=== PATIENT | male | born 1980 | race African-American/Black ===

== ENCOUNTER 2023-08-08 16:15 | Inpatient (IN) | payer OTHER, SELFPAY ==
[~2023-08-08 16:15] MED LIST: Iopamidol 370 76% 100 ML VIAL ONE
[2023-08-08] MEDS ORDERED: Verapamil 5 MG/2 ML VIAL ONE (16:29)
[2023-08-08] MEDS ORDERED: Heparin 10,000 UNITS/ 10 ML VIAL ONE ×2 (16:29)
[2023-08-08] MEDS ORDERED: Adenosine 6 MG/2 ML VIAL ONE (16:29)
[2023-08-08] MEDS ORDERED: Lidocaine 1% (PF) 30 ML VIAL ONE (16:29)
[2023-08-08] MEDS ORDERED: Nitroglycerin 50 MG/250 ML BOT 0 ML ONE (16:29)
[2023-08-08] MEDS ORDERED: EPINEPHrine 1 MG/10 ML Abboject SYRINGE ONE (16:30)
[2023-08-08] MEDS ORDERED: Atropine Sulfate 1 mg/10 ml Syringe ONE (16:30)
[2023-08-08] MEDS ORDERED: PHENYLEPHRINE-NS 100 MCG/ML 10 ML SYRINGE ONE (16:30)
[2023-08-08] MEDS ORDERED: DOPamine 400 MG/D5W 250 ML 250 ML ONE (16:34)
[2023-08-08 16:36] LABS: Actual Bicarbonate (HCO3a) 17.8 mEq/L (22-28); Analyzer IN Cardio ER; Base Excess (BEa) -8.4 mEq/L (-2.0 to +3.0); CO2 Tension 39.4 mmHg (35.0-45.0); Calcium, Ionized (arterial) 1.13 mmol/L (1.12-1.30); Carboxyhemoglobin (COHb) 3.1 gm% (0.0-3.0); Hematocrit-ABG 47 % (42.0-52.0); Hemoglobin (Hb) 16.1 g/dL (14.0-18.0); O2 Tension (PaO2), arterial 93.6 mmHg (80.0-100.0); Potassium - ABG Lab 4.32 mmol/L (3.70-5.30); Puncture Site RRA; pH, Arterial 7.273 (7.35-7.45)
[2023-08-08 16:42] LABS: #Monocytes 0.3 thou/uL (0.11-0.59); #Neutrophils 2.7 thou/uL (1.40-6.50); %Basophils 0.5 % (0.0-1.0); %Eosinophils 0.5 % (0.0-10.0); %Lymphocytes 25.7 % (21.0-51.0); %Monocytes 7.4 % (0.0-10.0); %Neutrophils 64.5 % (42.0-75.0); Hematocrit 49.7 % (42.0-52.0); Hemoglobin 15.6 g/dL (14.0-18.0); Mean Corpuscular HGB CONC 31.4 g/dL (32.0-36.0); Mean Corpuscular Hemoglobin 26.9 pg (27.0-31.0); Mean Corpuscular Volume 85.5 fl (78.0-98.0); Mean Platelet Volume 9.5 fL (7.4-10.4); Platelet Count 215 10x3/uL (130-400); RBC Distribution Width 13.4 % (11.5-14.5); Red Blood Cell (RBC) Count 5.81 mill/uL (4.70-6.10); White Blood Cell (WBC) Count 4.2 10x3/uL (4.8-10.8)
[2023-08-08 16:59] LABS: Amphetamine Detected (NotDetected); Bacteria/HPF 1+ HPF (None Seen); Barbiturates Screen Not Detected (NotDetected); Benzodiazepine Screen Not Detected (NotDetected); Bilirubin Negative (Negative); Blood, Urine 3+ (Negative); CAUTI Indications for Culture Alt mental st,lethar; Clarity Extra Turbid (Clear); Cocaine Metabolite Screen Not Detected (NotDetected); Glucose, Urine (Dipstick) 100 mg/dL (Negative); Ketone, Urine Negative (Negative); Leukocyte Negative Leu/uL (Negative); Methadone Not Detected (NotDetected); Methamphetamine Detected (NotDetected); Nitrite Negative (Negative); Opiate Screen Not Detected (NotDetected); Oxycodone Screen Not Detected (NotDetected); Phencyclidine (PCP) Not Detected (NotDetected); Protein, Urine (Dipstick) 600 mg/dL (Neg-Trace); RBC/HPF Greater than 50 HPF (0-3); Specific Gravity, Urine 1.024 (1.002-1.036); Sperm/HPF 2+ HPF (None Seen); Squamous Epithelial 0-3 HPF (0-3); THC/Cannabinoid Screen Detected (NotDetected); Tricyclic Screen Not Detected (NotDetected); Urobilinogen Normal mg/dL (Less than 2); WBC/HPF 21-50 HPF (0-3); pH, Urine 6.5 (5.0-9.0)
[2023-08-08 17:00] LABS: INR-International Normal Ratio 1.2; PTT 28.2 sec (22.9-36.1); Prothrombin Time 15.3 sec (12.0-14.7)
[2023-08-08 17:00] LABS: Urine Culture Reflex Yes Yes
[2023-08-08 17:05] LABS: ALT (SGPT) 154 U/L (8-55); AST (SGOT) 137 U/L (5-34); Albumin 4.3 g/dL (3.5-5.0); Alkaline Phosphatase 60 U/L (40-110); Anion Gap 24 mmol/L (10-20); BUN (Urea Nitrogen) 22 mg/dL (8.9-20.6); Bilirubin, Total 1.6 mg/dL (0.2-1.2); Calc. Creatinine Clearance 0 mL/min (70-130); Calcium 8.6 mg/dL (7.8-10.44); Carbon Dioxide 13 mmol/L (22-29); Chloride 105 mmol/L (98-107); Estimated GFR 48; Globulin 1.7 g/dL (2.4-3.5); Glucose 119 mg/dL (70-105); Potassium 4.5 mmol/L (3.5-5.1); Sodium 137 mmol/L (136-145)
[2023-08-08 17:09] LABS: Troponin I 0.153 ng/mL (< 0.028)
[2023-08-08] MEDS ORDERED: fentaNYL 50 mcg/mL 1 mL Vial ONE (17:11)
[2023-08-08] MEDS ORDERED: Propofol 1,000 MG/100 ML VIAL IV ONE (18:05)
[2023-08-08] MEDS ORDERED: DISCONTINUE PREVIOUS NARCOTIC PAIN MEDICATIONS AND BENZODIAZEPINES FS SCH (18:30)
[2023-08-08] MEDS ORDERED: NOREPINEPHRINE 8 MG/250 ML-D5W 250 ML IVPB SCH (18:30)
[2023-08-08] MEDS ORDERED: Propofol BOLUS 1,000 MG/100 ML VIAL IV PRN (18:30)
[2023-08-08] MEDS ORDERED: Fentanyl CADD 100 ML IV SCH (18:30)
[2023-08-08] MEDS ORDERED: Fentanyl BOLUS 250 ML IVPB PRN (18:30)
[2023-08-08] MEDS: Propofol 1,000 MG/100 ML VIAL IV PRN ×2 (18:44→23:33)
[2023-08-08] MEDS ORDERED: DOPamine 400 MG/D5W 250 ML 250 ML IVPB PRN (19:40)
[2023-08-08] MEDS ORDERED: Nitroglycerin 0.4 MG TAB (25 Tab Bottle) SL PRN (19:41)
[2023-08-08] MEDS ORDERED: Acetaminophen/Codeine 30-300mg Tablet PO PRN ×2 (19:42→19:43)
[2023-08-08] MEDS ORDERED: Amiodarone 150 MG, Admixture Fee 1 EACH in Dextrose 5% in Water 100 ML IVPB SCH (19:45)
[2023-08-08] MEDS: Lorazepam 2 MG/ML VIAL SLOW IVP PRN ×2 (20:40→21:47)
[2023-08-08] MEDS: Morphine 2 MG/ML VIAL SLOW IVP PRN (21:44)
[2023-08-08 22:48] LABS: Lactic Acid 0.8 mmol/L (0.5-2.2)
[2023-08-08] MEDS ORDERED: Electrolyte Replacement Protocol 1 EACH FS SCH (23:00)
[2023-08-09] MEDS: Morphine 2 MG/ML VIAL SLOW IVP PRN (02:52)
[2023-08-09] MEDS: Propofol 1,000 MG/100 ML VIAL IV PRN ×3 (04:37→20:33)
[2023-08-09 04:57] LABS: #Neutrophils 8.9 thou/uL (1.40-6.50); %Basophils 0.1 % (0.0-1.0); %Lymphocytes 10.5 % (21.0-51.0); %Neutrophils 80.1 % (42.0-75.0); Hematocrit 47.8 % (42.0-52.0); Hemoglobin 15.6 g/dL (14.0-18.0); Mean Corpuscular HGB CONC 32.6 g/dL (32.0-36.0); Mean Corpuscular Hemoglobin 26.9 pg (27.0-31.0); Mean Platelet Volume 9.4 fL (7.4-10.4); Platelet Count 202 10x3/uL (130-400); RBC Distribution Width 13.5 % (11.5-14.5); Red Blood Cell (RBC) Count 5.79 mill/uL (4.70-6.10); White Blood Cell (WBC) Count 11.1 10x3/uL (4.8-10.8)
[2023-08-09 05:11] LABS: Mean Corpuscular Volume 82.6 fl (78.0-98.0)
[2023-08-09] MEDS: Amiodarone 450 MG, Admixture Fee 1 EACH in Dextrose 5% in Water 250 ML IVPB SCH ×2 (05:27→11:56)
[2023-08-09 06:21] LABS: ALT (SGPT) 131 U/L (8-55); AST (SGOT) 93 U/L (5-34); Albumin 4.1 g/dL (3.5-5.0); Alkaline Phosphatase 60 U/L (40-110); Anion Gap 16 mmol/L (10-20); BUN (Urea Nitrogen) 23 mg/dL (8.9-20.6); Bilirubin, Total 1.6 mg/dL (0.2-1.2); Calc. Creatinine Clearance 93 mL/min (70-130); Calcium 9.1 mg/dL (7.8-10.44); Carbon Dioxide 20 mmol/L (22-29); Chloride 105 mmol/L (98-107); Estimated GFR 66; Globulin 2.4 g/dL (2.4-3.5); Glucose 104 mg/dL (70-105); Potassium 4.1 mmol/L (3.5-5.1); Protein, Total 6.5 g/dL (6.0-8.3); Sodium 137 mmol/L (136-145)
[2023-08-09 06:46] LABS: Phosphorus 4.7 mg/dL (2.3-4.7)
[2023-08-09 07:20] LABS: Actual Bicarbonate (HCO3a) 20.8 mEq/L (22-28); Base Excess (BEa) -3.3 mEq/L (-2.0 to +3.0); CO2 Tension 35.2 mmHg (35.0-45.0); Calcium, Ionized (arterial) 1.14 mmol/L (1.12-1.30); Carboxyhemoglobin (COHb) 0.9 gm% (0.0-3.0); Hematocrit-ABG 47 % (42.0-52.0); O2 Tension (PaO2), arterial 102.1 mmHg (80.0-100.0); Potassium - ABG Lab 3.97 mmol/L (3.70-5.30)
[2023-08-09 07:26] LABS: Puncture Site Arterial Line
[2023-08-09] MEDS: Famotidine/PF 20 mg/2ml Vial SLOW IVP SCH ×2 (08:50→20:33)
[2023-08-09] MEDS ORDERED: Magnesium 2 GM/50 ML(in water) 2 GM in Premix 1 BAG IVPB SCH (09:00)
[2023-08-09] MEDS ORDERED: Acetaminophen 325 MG TAB PER TUBE PRN (18:00)
[2023-08-10] MEDS: Amiodarone 450 MG, Admixture Fee 1 EACH in Dextrose 5% in Water 250 ML IVPB SCH ×2 (04:11→18:51)
[2023-08-10] MEDS: Propofol 1,000 MG/100 ML VIAL IV PRN ×2 (05:45→23:05)
[2023-08-10] MEDS: Famotidine/PF 20 mg/2ml Vial SLOW IVP SCH ×2 (08:44→20:22)
[2023-08-10] MEDS ORDERED: Dexmedetomidine 400 MCG, Admixture Fee 1 EACH in Sodium Chloride 0.9% 96 ML IVPB SCH (10:30)
[2023-08-11 05:25] LABS: #Monocytes 1.3 thou/uL (0.11-0.59); #Neutrophils 8.4 thou/uL (1.40-6.50); %Basophils 0.1 % (0.0-1.0); %Eosinophils 0.1 % (0.0-10.0); %Lymphocytes 10.6 % (21.0-51.0); %Monocytes 11.9 % (0.0-10.0); %Neutrophils 76.9 % (42.0-75.0); Hematocrit 51.7 % (42.0-52.0); Hemoglobin 16.5 g/dL (14.0-18.0); Mean Corpuscular HGB CONC 31.9 g/dL (32.0-36.0); Mean Corpuscular Volume 84.5 fl (78.0-98.0); Platelet Count 170 10x3/uL (130-400); RBC Distribution Width 13.7 % (11.5-14.5); Red Blood Cell (RBC) Count 6.12 mill/uL (4.70-6.10); White Blood Cell (WBC) Count 10.9 10x3/uL (4.8-10.8)
[2023-08-11] MEDS: Propofol 1,000 MG/100 ML VIAL IV PRN (06:08)
[2023-08-11 06:11] LABS: Anion Gap 18 mmol/L (10-20); BUN (Urea Nitrogen) 24 mg/dL (8.9-20.6); Calc. Creatinine Clearance 103 mL/min (70-130); Calcium 8.8 mg/dL (7.8-10.44); Carbon Dioxide 20 mmol/L (22-29); Chloride 103 mmol/L (98-107); Estimated GFR 81; Glucose 122 mg/dL (70-105); Potassium 4.8 mmol/L (3.5-5.1); Sodium 136 mmol/L (136-145)
[2023-08-11] MEDS: Famotidine/PF 20 mg/2ml Vial SLOW IVP SCH ×2 (09:26→20:36)
[2023-08-11] MEDS: Amiodarone 450 MG, Admixture Fee 1 EACH in Dextrose 5% in Water 250 ML IVPB SCH (09:48)
[2023-08-11] MEDS ORDERED: Magnesium 2 GM/50 ML(in water) 2 GM in Premix 1 BAG IVPB SCH (11:00)
[2023-08-11] MEDS ORDERED: Amiodarone 200 MG TAB PO SCH (12:15)
[2023-08-11] MEDS ORDERED: Aspirin 81 mg Enteric Coated Tablet PO SCH (12:30)
[2023-08-11] MEDS: Valsartan 80 MG TAB PO SCH (13:27)
[2023-08-11] MEDS: Carvedilol 3.125 MG TAB PO SCH (17:10)
[2023-08-11] MEDS ORDERED: FLU VACC QS2023-24(6MOS UP)/PF 60 MCG/0.5 ML SYRINGE IM ONE (20:15)
[2023-08-11] MEDS: Amiodarone 200 MG TAB PO SCH (20:36)
[2023-08-12 04:23] LABS: Anion Gap 13 mmol/L (10-20); BUN (Urea Nitrogen) 24 mg/dL (8.9-20.6); Calc. Creatinine Clearance 133 mL/min (70-130); Calcium 8.6 mg/dL (7.8-10.44); Carbon Dioxide 24 mmol/L (22-29); Cardiac Risk 7.8 (Less than 4.5); Chloride 102 mmol/L (98-107); Cholesterol 203 mg/dl (< 200 Desired); Estimated GFR 110; Glucose 109 mg/dL (70-105); HDL Cholesterol 26 mg/dL (>60 Neg Risk); LDL Cholesterol, Calculated 148 mg/dL; Potassium 4.3 mmol/L (3.5-5.1); Sodium 135 mmol/L (136-145); Triglycerides 147 mg/dL (Less than 150)
[2023-08-12] MEDS: Amiodarone 200 MG TAB PO SCH ×2 (08:18→20:44)
[2023-08-12] MEDS: Aspirin 81 mg Enteric Coated Tablet PO SCH (08:18)
[2023-08-12] MEDS: Famotidine/PF 20 mg/2ml Vial SLOW IVP SCH ×2 (08:18→20:44)
[2023-08-12] MEDS: Carvedilol 3.125 MG TAB PO SCH ×2 (08:18→18:16)
[2023-08-12] MEDS: Valsartan 80 MG TAB PO SCH (08:18)
[2023-08-13 05:29] LABS: Anion Gap 16 mmol/L (10-20); BUN (Urea Nitrogen) 26 mg/dL (8.9-20.6); Calc. Creatinine Clearance 122 mL/min (70-130); Calcium 8.9 mg/dL (7.8-10.44); Carbon Dioxide 22 mmol/L (22-29); Chloride 103 mmol/L (98-107); Estimated GFR 98; Glucose 89 mg/dL (70-105); Potassium 4.3 mmol/L (3.5-5.1); Sodium 137 mmol/L (136-145)
[2023-08-13] MEDS: Amiodarone 200 MG TAB PO SCH ×2 (08:59→20:21)
[2023-08-13] MEDS: Aspirin 81 mg Enteric Coated Tablet PO SCH (08:59)
[2023-08-13] MEDS: Valsartan 80 MG TAB PO SCH (08:59)
[2023-08-13] MEDS: Famotidine/PF 20 mg/2ml Vial SLOW IVP SCH ×2 (09:00→20:21)
[2023-08-13] MEDS: Carvedilol 3.125 MG TAB PO SCH ×2 (09:00→17:41)
[2023-08-14 05:38] LABS: Anion Gap 14 mmol/L (10-20); BUN (Urea Nitrogen) 19 mg/dL (8.9-20.6); Calc. Creatinine Clearance 123 mL/min (70-130); Calcium 8.8 mg/dL (7.8-10.44); Carbon Dioxide 23 mmol/L (22-29); Chloride 103 mmol/L (98-107); Estimated GFR 99; Glucose 97 mg/dL (70-105); Potassium 4.3 mmol/L (3.5-5.1); Sodium 136 mmol/L (136-145)
[2023-08-14 05:53] LABS: Albumin 3.8 g/dL (3.5-5.0)
[2023-08-14 05:56] LABS: Protein, Total 6.7 g/dL (6.0-8.3)
[2023-08-14 05:57] LABS: Bilirubin, Total 1.2 mg/dL (0.2-1.2)
[2023-08-14 05:58] LABS: Alkaline Phosphatase 57 U/L (40-110)
[2023-08-14 06:01] LABS: ALT (SGPT) 46 U/L (8-55); AST (SGOT) 44 U/L (5-34); Bilirubin, Direct 0.3 mg/dL (0.1-0.3)
[2023-08-14] MEDS: Carvedilol 3.125 MG TAB PO SCH ×3 (09:16→17:43)
[2023-08-14] MEDS: Famotidine/PF 20 mg/2ml Vial SLOW IVP SCH ×3 (09:17→19:58)
[2023-08-14] MEDS: Amiodarone 200 MG TAB PO SCH ×3 (09:17→19:58)
[2023-08-14] MEDS: Valsartan 80 MG TAB PO SCH ×2 (09:17→09:31)
[2023-08-14] MEDS: Aspirin 81 mg Enteric Coated Tablet PO SCH ×2 (09:19→09:31)
[2023-08-15 06:08] LABS: Anion Gap 16 mmol/L (10-20); BUN (Urea Nitrogen) 20 mg/dL (8.9-20.6); Calc. Creatinine Clearance 128 mL/min (70-130); Calcium 9.3 mg/dL (7.8-10.44); Carbon Dioxide 21 mmol/L (22-29); Chloride 102 mmol/L (98-107); Estimated GFR 111; Glucose 78 mg/dL (70-105); Potassium 4.6 mmol/L (3.5-5.1); Sodium 134 mmol/L (136-145)
[2023-08-15] MEDS: Aspirin 81 mg Enteric Coated Tablet PO SCH (10:28)
[2023-08-15] MEDS: Valsartan 80 MG TAB PO SCH (10:28)
[2023-08-15] MEDS: Amiodarone 200 MG TAB PO SCH ×2 (10:28→11:58)
[2023-08-15] MEDS: Carvedilol 3.125 MG TAB PO SCH (10:29)
[2023-08-15] MEDS: Famotidine/PF 20 mg/2ml Vial SLOW IVP SCH ×2 (10:32→19:52)
[2023-08-15] MEDS ORDERED: Carvedilol 3.125 MG TAB PO SCH (17:00)
[2023-08-15] MEDS: Carvedilol 6.25 MG TAB PO SCH (17:36)
[2023-08-16] MEDS: Amiodarone 200 MG TAB PO SCH (10:29)
[2023-08-16] MEDS: Valsartan 80 MG TAB PO SCH (10:29)
[2023-08-16] MEDS: Carvedilol 6.25 MG TAB PO SCH ×2 (10:31→18:04)
[2023-08-16] MEDS: Aspirin 81 mg Enteric Coated Tablet PO SCH (10:31)
[2023-08-16] MEDS: Famotidine/PF 20 mg/2ml Vial SLOW IVP SCH ×2 (10:32→21:23)
[2023-08-16 21:23] LABS: Anion Gap 13 mmol/L (10-20); BUN (Urea Nitrogen) 21 mg/dL (8.9-20.6); Calc. Creatinine Clearance 98 mL/min (70-130); Calcium 8.9 mg/dL (7.8-10.44); Carbon Dioxide 22 mmol/L (22-29); Chloride 102 mmol/L (98-107); Estimated GFR 80; Glucose 115 mg/dL (70-105); Potassium 3.9 mmol/L (3.5-5.1); Sodium 133 mmol/L (136-145)
[2023-08-17 05:12] LABS: Anion Gap 15 mmol/L (10-20); BUN (Urea Nitrogen) 18 mg/dL (8.9-20.6); Calc. Creatinine Clearance 111 mL/min (70-130); Carbon Dioxide 21 mmol/L (22-29); Chloride 102 mmol/L (98-107); Estimated GFR 94; Glucose 92 mg/dL (70-105); Potassium 4.6 mmol/L (3.5-5.1); Sodium 133 mmol/L (136-145)
[2023-08-17] MEDS: Carvedilol 6.25 MG TAB PO SCH ×2 (10:13→18:00)
[2023-08-17] MEDS: Valsartan 80 MG TAB PO SCH (10:13)
[2023-08-17] MEDS: Aspirin 81 mg Enteric Coated Tablet PO SCH (10:14)
[2023-08-17] MEDS: Famotidine/PF 20 mg/2ml Vial SLOW IVP SCH ×2 (10:14→21:05)
[2023-08-17] MEDS: Famotidine 20 MG TAB PO SCH (21:04)
[2023-08-18 05:11] LABS: Anion Gap 14 mmol/L (10-20); BUN (Urea Nitrogen) 18 mg/dL (8.9-20.6); Calc. Creatinine Clearance 119 mL/min (70-130); Calcium 9.1 mg/dL (7.8-10.44); Carbon Dioxide 22 mmol/L (22-29); Chloride 101 mmol/L (98-107); Estimated GFR 102; Glucose 91 mg/dL (70-105); Potassium 4.2 mmol/L (3.5-5.1); Sodium 133 mmol/L (136-145)
[2023-08-18 08:21] LABS: Troponin I 0.036 ng/mL (< 0.028)
[2023-08-18] MEDS: Famotidine/PF 20 mg/2ml Vial SLOW IVP SCH ×2 (09:27→20:44)
[2023-08-18] MEDS: Famotidine 20 MG TAB PO SCH ×2 (09:27→20:40)
[2023-08-18] MEDS: Aspirin 81 mg Enteric Coated Tablet PO SCH (09:27)
[2023-08-18] MEDS: Carvedilol 6.25 MG TAB PO SCH ×2 (09:27→16:36)
[2023-08-18] MEDS: Amiodarone 200 MG TAB PO SCH (09:27)
[2023-08-18] MEDS: Valsartan 80 MG TAB PO SCH (09:27)
[2023-08-18] MEDS: Magnesium 2 GM/50 ML(in water) 2 GM in Premix 1 BAG IVPB SCH ×2 (11:03→11:39)
[2023-08-19 05:23] LABS: Anion Gap 14 mmol/L (10-20); BUN (Urea Nitrogen) 19 mg/dL (8.9-20.6); Calc. Creatinine Clearance 108 mL/min (70-130); Calcium 9.4 mg/dL (7.8-10.44); Carbon Dioxide 21 mmol/L (22-29); Chloride 102 mmol/L (98-107); Estimated GFR 90; Glucose 78 mg/dL (70-105); Potassium 4.2 mmol/L (3.5-5.1); Sodium 133 mmol/L (136-145)
[2023-08-19] MEDS: Famotidine 20 MG TAB PO SCH ×2 (09:56→20:22)
[2023-08-19] MEDS: Carvedilol 6.25 MG TAB PO SCH ×2 (09:56→16:35)
[2023-08-19] MEDS: Aspirin 81 mg Enteric Coated Tablet PO SCH (09:56)
[2023-08-19] MEDS: Valsartan 80 MG TAB PO SCH (09:56)
[2023-08-19] MEDS: Amiodarone 200 MG TAB PO SCH (09:56)
[2023-08-19] MEDS: Famotidine/PF 20 mg/2ml Vial SLOW IVP SCH ×2 (10:12→20:21)
[2023-08-19 13:57] LABS: Hematocrit 51.3 % (42.0-52.0); Hemoglobin 16.8 g/dL (14.0-18.0); Platelet Count 278 10x3/uL (130-400)
[2023-08-20 04:52] LABS: Anion Gap 17 mmol/L (10-20); BUN (Urea Nitrogen) 18 mg/dL (8.9-20.6); Calc. Creatinine Clearance 87 mL/min (70-130); Calcium 9.6 mg/dL (7.8-10.44); Carbon Dioxide 22 mmol/L (22-29); Chloride 101 mmol/L (98-107); Estimated GFR 72; Glucose 81 mg/dL (70-105); Potassium 4.5 mmol/L (3.5-5.1); Sodium 135 mmol/L (136-145)
[2023-08-20] MEDS ORDERED: Amiodarone 200 MG TAB PO SCH (09:57)
[2023-08-20] MEDS: Amiodarone 200 MG TAB PO SCH (10:17)
[2023-08-20] MEDS: Valsartan 80 MG TAB PO SCH (12:48)
[2023-08-20] MEDS: Aspirin 81 mg Enteric Coated Tablet PO SCH (12:48)
[2023-08-20] MEDS: Carvedilol 6.25 MG TAB PO SCH ×2 (12:49→16:42)
[2023-08-20] MEDS: Famotidine 20 MG TAB PO SCH ×2 (12:49→21:46)
[2023-08-20] MEDS: Famotidine/PF 20 mg/2ml Vial SLOW IVP SCH (12:51)
[2023-08-21 05:41] LABS: Anion Gap 15 mmol/L (10-20); BUN (Urea Nitrogen) 20 mg/dL (8.9-20.6); Calc. Creatinine Clearance 78 mL/min (70-130); Calcium 9.4 mg/dL (7.8-10.44); Carbon Dioxide 20 mmol/L (22-29); Chloride 103 mmol/L (98-107); Estimated GFR 64; Glucose 108 mg/dL (70-105); Potassium 4.1 mmol/L (3.5-5.1); Sodium 134 mmol/L (136-145)
[2023-08-21] MEDS: Famotidine 20 MG TAB PO SCH ×2 (10:00→20:01)
[2023-08-21] MEDS: Carvedilol 6.25 MG TAB PO SCH ×2 (10:00→16:33)
[2023-08-21] MEDS: Aspirin 81 mg Enteric Coated Tablet PO SCH (10:00)
[2023-08-21] MEDS: Valsartan 80 MG TAB PO SCH (10:00)
[2023-08-21] MEDS: Amiodarone 200 MG TAB PO SCH (10:01)
[2023-08-22 05:24] LABS: #Monocytes 0.6 thou/uL (0.11-0.59); #Neutrophils 2.7 thou/uL (1.40-6.50); %Basophils 0.4 % (0.0-1.0); %Eosinophils 0.7 % (0.0-10.0); %Lymphocytes 38.7 % (21.0-51.0); %Monocytes 11.5 % (0.0-10.0); %Neutrophils 48.5 % (42.0-75.0); Hematocrit 53.1 % (42.0-52.0); Hemoglobin 16.7 g/dL (14.0-18.0); Mean Corpuscular HGB CONC 31.5 g/dL (32.0-36.0); Mean Corpuscular Hemoglobin 26.3 pg (27.0-31.0); Mean Corpuscular Volume 83.6 fl (78.0-98.0); Mean Platelet Volume 9.3 fL (7.4-10.4); Platelet Count 324 10x3/uL (130-400); RBC Distribution Width 12.7 % (11.5-14.5); Red Blood Cell (RBC) Count 6.35 mill/uL (4.70-6.10); White Blood Cell (WBC) Count 5.5 10x3/uL (4.8-10.8)
[2023-08-22 05:55] LABS: Anion Gap 15 mmol/L (10-20); BUN (Urea Nitrogen) 16 mg/dL (8.9-20.6); Calc. Creatinine Clearance 95 mL/min (70-130); Calcium 9.6 mg/dL (7.8-10.44); Carbon Dioxide 20 mmol/L (22-29); Chloride 103 mmol/L (98-107); Estimated GFR 80; Glucose 90 mg/dL (70-105); Potassium 4.4 mmol/L (3.5-5.1); Sodium 134 mmol/L (136-145)
[2023-08-22] MEDS: Amiodarone 200 MG TAB PO SCH (08:11)
[2023-08-22] MEDS: Famotidine 20 MG TAB PO SCH ×2 (08:11→21:27)
[2023-08-22] MEDS: Aspirin 81 mg Enteric Coated Tablet PO SCH (08:11)
[2023-08-22] MEDS: Valsartan 80 MG TAB PO SCH (08:11)
[2023-08-22] MEDS: Carvedilol 6.25 MG TAB PO SCH ×2 (08:11→17:20)
[2023-08-23 09:13] LABS: #Monocytes 0.5 thou/uL (0.11-0.59); #Neutrophils 2.4 thou/uL (1.40-6.50); %Basophils 0.4 % (0.0-1.0); %Eosinophils 0.9 % (0.0-10.0); %Lymphocytes 35.7 % (21.0-51.0); %Monocytes 10.3 % (0.0-10.0); %Neutrophils 52.5 % (42.0-75.0); Hematocrit 54.1 % (42.0-52.0); Hemoglobin 16.6 g/dL (14.0-18.0); Mean Corpuscular HGB CONC 30.7 g/dL (32.0-36.0); Mean Corpuscular Hemoglobin 26.7 pg (27.0-31.0); Mean Platelet Volume 10.4 fL (7.4-10.4); Platelet Count 175 10x3/uL (130-400); RBC Distribution Width 12.9 % (11.5-14.5); Red Blood Cell (RBC) Count 6.22 mill/uL (4.70-6.10); White Blood Cell (WBC) Count 4.5 10x3/uL (4.8-10.8)
[2023-08-23 09:24] LABS: Anion Gap 17 mmol/L (10-20); BUN (Urea Nitrogen) 15 mg/dL (8.9-20.6); Calc. Creatinine Clearance 97 mL/min (70-130); Calcium 9.7 mg/dL (7.8-10.44); Carbon Dioxide 19 mmol/L (22-29); Chloride 103 mmol/L (98-107); Estimated GFR 85; Glucose 84 mg/dL (70-105); Potassium 4.8 mmol/L (3.5-5.1); Sodium 134 mmol/L (136-145)
[2023-08-23 10:05] LABS: Platelet Adequacy Comment Appears Adequate
[2023-08-23] MEDS: Famotidine 20 MG TAB PO SCH ×2 (10:17→21:06)
[2023-08-23] MEDS: Aspirin 81 mg Enteric Coated Tablet PO SCH (10:17)
[2023-08-23] MEDS: Valsartan 80 MG TAB PO SCH (11:24)
[2023-08-23] MEDS: Amiodarone 200 MG TAB PO SCH (11:24)
[2023-08-23] MEDS: Carvedilol 6.25 MG TAB PO SCH ×2 (11:25→18:07)
[2023-08-24 10:10] LABS: Anion Gap 12 mmol/L (10-20); BUN (Urea Nitrogen) 16 mg/dL (8.9-20.6); Calc. Creatinine Clearance 87 mL/min (70-130); Calcium 9.5 mg/dL (7.8-10.44); Carbon Dioxide 25 mmol/L (22-29); Chloride 104 mmol/L (98-107); Estimated GFR 74; Glucose 94 mg/dL (70-105); Potassium 4.3 mmol/L (3.5-5.1); Sodium 137 mmol/L (136-145)
[2023-08-24] MEDS: Aspirin 81 mg Enteric Coated Tablet PO SCH (11:44)
[2023-08-24] MEDS: Amiodarone 200 MG TAB PO SCH (11:44)
[2023-08-24] MEDS: Carvedilol 6.25 MG TAB PO SCH ×2 (11:44→16:15)
[2023-08-24] MEDS: Famotidine 20 MG TAB PO SCH ×2 (11:44→20:54)
[2023-08-24] MEDS: Valsartan 80 MG TAB PO SCH (11:44)
[2023-08-24] MEDS ORDERED: Magnesium 2 GM/50 ML(in water) 2 GM in Premix 1 BAG IVPB SCH (14:00)
[2023-08-25 08:08] LABS: Anion Gap 14 mmol/L (10-20); BUN (Urea Nitrogen) 14 mg/dL (8.9-20.6); Calc. Creatinine Clearance 92 mL/min (70-130); Calcium 9.6 mg/dL (7.8-10.44); Carbon Dioxide 24 mmol/L (22-29); Chloride 104 mmol/L (98-107); Estimated GFR 79; Glucose 94 mg/dL (70-105); Potassium 4.1 mmol/L (3.5-5.1); Sodium 138 mmol/L (136-145)
[2023-08-25] MEDS: Aspirin 81 mg Enteric Coated Tablet PO SCH (08:09)
[2023-08-25] MEDS: Carvedilol 6.25 MG TAB PO SCH ×2 (08:09→16:05)
[2023-08-25] MEDS: Amiodarone 200 MG TAB PO SCH (08:09)
[2023-08-25] MEDS: Famotidine 20 MG TAB PO SCH ×2 (08:09→19:48)
[2023-08-25] MEDS: Valsartan 80 MG TAB PO SCH (08:09)
[2023-08-25 08:11] VITALS: BMI 22.4
[2023-08-26 05:53] LABS: Anion Gap 14 mmol/L (10-20); BUN (Urea Nitrogen) 21 mg/dL (8.9-20.6); Calc. Creatinine Clearance 69 mL/min (70-130); Calcium 9.3 mg/dL (7.8-10.44); Carbon Dioxide 24 mmol/L (22-29); Chloride 104 mmol/L (98-107); Estimated GFR 56; Glucose 91 mg/dL (70-105); Sodium 138 mmol/L (136-145)
[2023-08-26] MEDS: Aspirin 81 mg Enteric Coated Tablet PO SCH (09:36)
[2023-08-26] MEDS: Famotidine 20 MG TAB PO SCH ×2 (09:36→21:00)
[2023-08-26] MEDS: Valsartan 80 MG TAB PO SCH ×2 (09:37→09:39)
[2023-08-26] MEDS: Amiodarone 200 MG TAB PO SCH (09:37)
[2023-08-26] MEDS: Carvedilol 6.25 MG TAB PO SCH ×2 (09:38→17:56)
[2023-08-26] MEDS ORDERED: Lactated Ringer's 1,000 ML IV SCH (10:30)
[2023-08-27 05:49] LABS: Anion Gap 14 mmol/L (10-20); BUN (Urea Nitrogen) 20 mg/dL (8.9-20.6); Calc. Creatinine Clearance 95 mL/min (70-130); Calcium 9.3 mg/dL (7.8-10.44); Carbon Dioxide 22 mmol/L (22-29); Chloride 104 mmol/L (98-107); Estimated GFR 82; Glucose 91 mg/dL (70-105); Potassium 4.4 mmol/L (3.5-5.1); Sodium 136 mmol/L (136-145)
[2023-08-27] MEDS: Famotidine 20 MG TAB PO SCH (09:18)
[2023-08-27] MEDS: Valsartan 80 MG TAB PO SCH (09:18)
[2023-08-27] MEDS: Carvedilol 6.25 MG TAB PO SCH (09:19)
[2023-08-27] MEDS: Amiodarone 200 MG TAB PO SCH (09:19)
[2023-08-27] MEDS: Aspirin 81 mg Enteric Coated Tablet PO SCH (09:19)
[2023-08-27 16:38] VITALS: BP 104/72; TEMP 97.6
== END 2023-08-27 17:00 | disposition home or self-care (01) | DRG 286 ==
LOC: ERS 16:15 → CCL 16:40 → CCU 17:21 → 2NO 08-12 10:56 → SURG A 08-25 14:48
PROVIDERS: ADMIT Internal Medicine Cardiovascular Disease; ATTEND Internal Medicine
PROC: 4A023N7 Measurement of Cardiac Sampling and Pressure, Left Heart, Percutaneous Approach (ICD-10-PCS; principal; 2023-08-08)
PROC: B2111ZZ Fluoroscopy of Multiple Coronary Arteries using Low Osmolar Contrast (ICD-10-PCS; 2023-08-08)
PROC: B2151ZZ Fluoroscopy of Left Heart using Low Osmolar Contrast (ICD-10-PCS; 2023-08-08)
PROC: 0D9670Z Drainage of Stomach with Drainage Device, Via Natural or Artificial Opening (ICD-10-PCS; 2023-08-08)
PROC: 5A1945Z Respiratory Ventilation, 24-96 Consecutive Hours (ICD-10-PCS; 2023-08-08)
PROC: 4A133R1 Monitoring of Arterial Saturation, Peripheral, Percutaneous Approach (ICD-10-PCS; 2023-08-08)
PROC: 3E033XZ Introduction of Vasopressor into Peripheral Vein, Percutaneous Approach (ICD-10-PCS; 2023-08-08)
PROC: 4A10X4Z Monitoring of Central Nervous Electrical Activity, External Approach (ICD-10-PCS; 2023-08-24)
DX: I49.01 Ventricular fibrillation (principal); J96.00 Acute respiratory failure, unspecified whether with hypoxia or hypercapnia; K72.00 Acute and subacute hepatic failure without coma; E87.20 Acidosis, unspecified; N17.9 Acute kidney failure, unspecified; G93.1 Anoxic brain damage, not elsewhere classified; F32.A Depression, unspecified; F17.210 Nicotine dependence, cigarettes, uncomplicated; I42.0 Dilated cardiomyopathy; N18.9 Chronic kidney disease, unspecified; F15.10 Other stimulant abuse, uncomplicated; Z95.5 Presence of coronary angioplasty implant and graft; I47.20 Ventricular tachycardia, unspecified; I46.2 Cardiac arrest due to underlying cardiac condition; E78.5 Hyperlipidemia, unspecified; G93.89 Other specified disorders of brain; I12.9 Hypertensive chronic kidney disease with stage 1 through stage 4 chronic kidney disease, or unspecified chronic kidney disease
CPT/HCPCS: 36415; 36416; 36600; 51702; 70450; 70551; 71045; 80048; 80053; 80061; 80076; 80306; 81001; 82805; 83605; 83735; 84100; 84484; 85014; 85018; 85025; 85049; 85347; 85610; 85730; 87086; 93005; 93010; 93458; 94003; 95711; 95819; C1769; C1887; J0153; J0171; J0282; J0461; J1265; J1644; J1650; J2001; J2060; J2272; J2704; J3010; J3475; J3490; J7070; J7120; Q9967; S0028